=== PATIENT | female | born 1955 | race Caucasian/White ===

== ENCOUNTER 2017-07-28 07:27 | Outpatient (CLI) | payer OTHER ==
[2017-07-28 08:23] LABS: eGFR (African) > 60; eGFR (Non-African) > 60
== END 2017-07-28 07:30 ==
LOC: LAB 07:27
PROVIDERS: ATTEND Family Medicine
DX: E78.2 Mixed hyperlipidemia (principal)
CPT/HCPCS: 36415; 80053; 80061

== ENCOUNTER 2017-08-07 09:59 | Outpatient (CLI) | payer OTHER | END 2017-08-07 10:05 | LOC: RAD 09:59 | PROVIDERS: ATTEND Family Medicine | DX: M81.0 Age-related osteoporosis without current pathological fracture (principal) | CPT/HCPCS: 77080 ==